=== PATIENT | male | born 1985 | race Caucasian/White ===

== ENCOUNTER 2016-11-14 20:28 | Emergency (ER) | payer OTHER ==
[~2016-11-14] VITALS: Ht 180.3 cm; Wt 103.8 kg
[2016-11-14 20:31] VITALS: TEMP 36.6; Ht 180.3 cm; Wt 103.8 kg
[2016-11-14] MEDS ORDERED: GI COCKTAIL PO STA (21:09)
[2016-11-14] MEDS ORDERED: FAMOTIDINE 20 MG TAB PO STA (21:09)
--- NOTE | 2016-11-14 21:09 | EMERGENCY ROOM VISIT NOTE ---
History Report prepared by Beatrice: Jose Manuel Kirk Under the Supervision of: Dr. Mohit Spangler M.D. First contact with patient: 20:41 Chief Complaint: GI ASSESSMENT Stated Complaint: HARD TO BREATHE/ANXIETY History of Present Illness The patient is a 31 year old male who presents to the Emergency Room with complaints of persistent discomfort in his throat that has been going on for the past week and a half. The patient describes the sensation as his throat closing and feels like he needs to drink water to open it back up. He also complains of a rising, burning sensation in his abdomen. He notes these symptoms have been making it more difficult to breathe and notes increased anxiety. The patient also notes that his left elbow and knee have been cramping for the past few days. The patient had cold-like symptoms a few days ago and was taking NyQuil and a medication for his sinuses for 2 days, but he stopped these 2 days ago. He notes one episode of diarrhea this morning. Source of History: patient Onset: past week and a half Position: throat Timing: other (persistent) Associated Symptoms: + SOB (difficulty breathing), + abdominal pain (rising , burning discomfort), + diarrhea Note: Other associated symptoms: increased anxiety, cramping in left elbow and knee, cold-like symptoms Review of Systems See HPI for pertinent positives & negatives. A total of 10 systems reviewed and were otherwise negative. Past Medical & Surgical Medical Problems: (1) Hearing Loss Nos (2) No Known Active Medical Problems Family History Cancer Heart disease Hypertension Lung disease Social History Smoking Status: Never Smoker Marital Status: single Occupation Status: unemployed Current/Historical Medications No Active Prescriptions or Reported Meds Allergies Coded Allergies: No Known Allergies (Unverified , 05/02/16) Physical Exam Vital Signs Date Time Temp Pulse Resp B/P Pulse Ox O2 Delivery O2 Flow Rate FiO2 11/14/16 21:43 90 20 147/94 95 Room Air 11/14/16 20:31 36.6 91 18 154/115 98 Room Air Physical Exam GENERAL: Patient is a healthy-appearing well-nourished HEAD: Normocephalic atraumatic EYES: Ocular movements intact pupils equal and react to light OROPHARYNX mucous membranes are moist no exudates present no erythema or edema present NECK: Supple no nuchal rigidity CHEST: Good equal expansion LUNGS: Clear and equal to auscultation CARDIAC: Normal S1 and S2 ABDOMEN: Soft nontender no guarding BACK: No CVA tenderness EXTREMITIES: No pain upon palpation normal muscle strength in all groups no clubbing cyanosis or edema NEURO: Patient is following commands is answering questions appropriately. Alert and oriented x3 Cranial Nerves 2-12 grossly intact Medical Decision & Procedures ER Provider Diagnostic Interpretation: X-ray results as stated below per my interpretation and radiologist interpretation. Other radiology results as stated below per my review and radiologist interpretation: SOFT TISSUE NECK CLINICAL HISTORY: Difficulty swallowing. COMPARISON STUDY: No previous studies for comparison. FINDINGS: Prevertebral soft tissues are unremarkable on this exam. The epiglottis is not well evaluated on this exam as it is partially obscured. No abnormal collections of soft tissue gas are present. IMPRESSION: 1. No abnormality of the prevertebral soft tissues identified. 2. Epiglottis not well evaluated on this exam as it is partially obscured. Electronically signed by: Gregory Jimenez M.D. 11/14/2016 10:46 PM Dictated Date/Time: 11/14/2016 10:44 PM LEFT LOWER EXTREMITY VENOUS DOPPLER CLINICAL HISTORY: Left lower extremity pain. COMPARISON STUDY: No previous studies for comparison. TECHNIQUE: Sonography of the deep venous system of the left lower extremity was performed. Compression and augmentation were evaluated. FINDINGS: The common femoral, superficial femoral and popliteal veins were compressible. Augmentation was normal. Flow was shown within the deep calf vessels. IMPRESSION: No evidence of deep venous thrombus within the left lower extremity. Electronically signed by: Gregory Jimenez M.D. 11/14/2016 10:24 PM Dictated Date/Time: 11/14/2016 10:23 PM LEFT KNEE 1 OR 2 VIEWS ROUTINE CLINICAL HISTORY: Left knee pain. COMPARISON: None FINDINGS: Alignment of the left knee is anatomic. No fracture or suspicious lesion is identified. Joint spaces are preserved. There is a possible left knee joint effusion. IMPRESSION: 1. No osseous abnormality of the left knee. 2. Possible left knee joint effusion. Electronically signed by: Gregory Jimenez M.D. 11/14/2016 10:44 PM Dictated Date/Time: 11/14/2016 10:43 PM PA CHEST RADIOGRAPH CLINICAL HISTORY: Shortness of breath. COMPARISON STUDY: Chest radiograph May 02, 2016. FINDINGS: Lung volumes are at the lower limits of normal. No pneumothorax or pleural effusion is present. There are no areas of consolidation. Cardiac size is normal. Mediastinal contours are normal. Pulmonary vascularity is normal. IMPRESSION: No acute cardiopulmonary findings. Electronically signed by: Gregory Jimenez M.D. 11/14/2016 10:47 PM Dictated Date/Time: 11/14/2016 10:46 PM Laboratory Results 11/14/16 20:55 Red Blood Count 4.72, Mean Corpuscular Volume 85.4, Mean Corpuscular Hemoglobin 31.4, Mean Corpuscular Hemoglobin Concent 36.7, Mean Platelet Volume 12.0, Neutrophils (%) (Auto) 56.1, Lymphocytes (%) (Auto) 29.0, Monocytes (%) (Auto) 11.4, Eosinophils (%) (Auto) 3.3, Basophils (%) (Auto) 0.2, Neutrophils # (Auto ) 2.40, Lymphocytes # (Auto) 1.24, Monocytes # (Auto) 0.49, Eosinophils # (Auto ) 0.14, Basophils # (Auto) 0.01 11/14/16 20:55 Test 11/14/16 20:55 White Blood Count 4.28 K/uL (4.8-10.8) Red Blood Count 4.72 M/uL (4.7-6.1) Hemoglobin 14.8 g/dL (14.0-18.0) Hematocrit 40.3 % (42-52) Mean Corpuscular Volume 85.4 fL (80-100) Mean Corpuscular Hemoglobin 31.4 pg (25-34) Mean Corpuscular Hemoglobin Concent 36.7 g/dl (32-36) Platelet Count 151 K/uL (130-400) Mean Platelet Volume 12.0 fL (7.4-10.4) Neutrophils (%) (Auto) 56.1 % Lymphocytes (%) (Auto) 29.0 % Monocytes (%) (Auto) 11.4 % Eosinophils (%) (Auto) 3.3 % Basophils (%) (Auto) 0.2 % Neutrophils # (Auto) 2.40 K/uL (1.4-6.5) Lymphocytes # (Auto) 1.24 K/uL (1.2-3.4) Monocytes # (Auto) 0.49 K/uL (0.11-0.59) Eosinophils # (Auto) 0.14 K/uL (0-0.5) Basophils # (Auto) 0.01 K/uL (0-0.2) RDW Standard Deviation 38.1 fL (36.4-46.3) RDW Coefficient of Variation 12.2 % (11.5-14.5) Immature Granulocyte % (Auto) 0.0 % Immature Granulocyte # (Auto) 0.00 K/uL (0.00-0.02) Urine Color YELLOW Urine Appearance CLEAR (CLEAR) Urine pH 6.0 (4.5-7.5) Urine Specific [place] 1.008 (1.000-1.030) Urine Protein NEG (NEG) Urine Glucose (UA) NEG (NEG) Urine Ketones NEG (NEG) Urine Occult Blood NEG (NEG) Urine Nitrite NEG (NEG) Urine Bilirubin NEG (NEG) Urine Urobilinogen NEG (NEG) Urine Leukocyte Esterase NEG (NEG) Anion Gap 11.0 mmol/L (3-11) Est Creatinine Clear Calc Drug Dose 130.0 ml/min Estimated GFR () 114.9 Estimated GFR (Non- 99.1 BUN/Creatinine Ratio 13.4 (10-20) Calcium Level 8.8 mg/dl (8.5-10.1) Total Bilirubin 0.3 mg/dl (0.2-1) Direct Bilirubin < 0.1 mg/dl (0-0.2) Aspartate Amino Transf (AST/SGOT) 53 U/L (15-37) Alanine Aminotransferase (ALT/SGPT) 82 U/L (12-78) Alkaline Phosphatase 59 U/L (45-117) Total Protein 7.7 gm/dl (6.4-8.2) Albumin 4.3 gm/dl (3.4-5.0) Lipase 185 U/L (73-393) Labs reviewed by ED physician. Medications Administered Medications (Trade) Dose Ordered Sig/Melita Route Start Time Stop Time Status Last Admin Dose Admin Famotidine (Pepcid Tab) 20 mg NOW STAT PO 11/14/16 21:09 11/14/16 21:13 DC 11/14/16 21:43 20 MG Sucralfate (Carafate Tab) 1 gm NOW ONCE PO 11/14/16 21:15 11/14/16 21:16 DC 11/14/16 21:43 1 GM Al Hydroxide/Mg Hydroxide (Maalox Susp) 30 ml STK-MED ONCE .ROUTE 11/14/16 21:37 11/14/16 21:38 DC 11/14/16 21:43 30 ML Lidocaine HCl (Viscous Lidocaine 2% Soln) 20 ml STK-MED ONCE .ROUTE 11/14/16 21:37 11/14/16 21:39 DC 11/14/16 21:43 20 ML ECG Indication: abdominal pain Rate (beats per minute): 76 Rhythm: normal sinus Findings: no acute ischemic change, no ectopy ED Course 2054: Past medical records reviewed. The patient was evaluated in room B12. A complete history and physical examination was performed. 2108: Ordered Pepcid Tab 20 mg PO, Gi Cocktail 30 ml PO. 2114: Ordered Sucralfate 1 gm PO. 2136: Ordered Lidocaine HCl 20 ml .ROUTE, Maalox Susp 30 ml .ROUTE. 2301: Ordered Gianna Ciel Elix 40 meq PO. 2304: Upon reexamination the patient is resting comfortably. I discussed results and treatment plan with the patient. He verbalizes agreement and understanding. The patient is ready for discharge. Medical Decision Differential diagnosis: Etiologies such as appendicitis, diverticulitis, PUD, biliary pathology, UTI, pancreatitis, obstruction, mesenteric ischemia, aortic pathology, infections, inflammatory bowel disease, renal colic, as well as others were entertained. This is a 31-year-old male who presents emergency department complaining of multiple complaints. The patient is complaining of cramping to his legs as well as difficulty swallowing as well as epigastric pain. The patient reports she is under a lot of stress and anxiety over the of his auricle which occurred approximately one week ago. The patient was given a GI cocktail, Pepcid and Carafate in the emergency department. This resulted in much improvement in the patient's symptoms and the patient is also concerned about his hypertension however I noted that the patient is under a large amount of anxiety and that he needs follow-up for his hypertension with his primary care physician. He has a normal EKG and normal ultrasound of his leg. I believe based on these findings the patient can be safely discharged home. I will note that the patient is able swallow his own saliva does not appear to have any stridor on examination. I feel his anxiety as well as his reflux are contributing to his symptoms. Patient was in agreement with treatment plan. Impression Primary Impression: Hypokalemia Additional Impression: Reflux gastritis Scribe Attestation The scribe's documentation has been prepared under my direction and personally reviewed by me in its entirety. I confirm that the note above accurately reflects all work, treatment, procedures, and medical decision making performed by me. Departure Information Dispostion Home / Self-Care Prescriptions No Active Prescriptions or Reported Meds Referrals RV. Bhatti MD (PCP) Forms HOME CARE DOCUMENTATION FORM, IMPORTANT VISIT INFORMATION Patient Instructions A Signature Page, My [facility] Additional Instructions Take 5 ml Maalox with every meal and at bedtime Clear liquid diet for next 48 hours Follow up with PCP You have been examined and treated today on an emergency basis only. This is not a substitute for, or an effort to provide, complete comprehensive medical care. It is impossible to recognize and treat all injuries or illnesses in a single emergency department visit. It is therefore important that you follow up closely with Dr Chapin. Call as soon as possible for an appointment. Thank you for your time and consideration. I look forward to speaking with you again soon. Please don't hesitate to call us if you have any questions.
[2016-11-14] MEDS ORDERED: SUCRALFATE 1 GM TAB PO ONE (21:15)
[2016-11-14] MEDS ORDERED: LIDOCAINE HCL 2% VISC SOLN 20 ML UDC ONE (21:37)
[2016-11-14] MEDS ORDERED: ALUMINUM/MAGNESIUM SUSP 30 ML UDC ONE (21:37)
[2016-11-14 21:41] LABS: BASO % 0.2 %; BASO ABS # 0.01 K/uL (0-0.2); COMPLETE YES; EOS % 3.3 %; HEMATOCRIT 40.3 % (42-52); LYMPH ABS # 1.24 K/uL (1.2-3.4); MEAN CELL VOLUME 85.4 fL (80-100); MEAN CORPUSCULAR HEMOGLOBIN 31.4 pg (25-34); MEAN CORPUSCULAR HGB CONC 36.7 g/dl (32-36); MONO % 11.4 %; NEUT % 56.1 %; PLATELET COUNT 151 K/uL (130-400); RED BLOOD COUNT 4.72 M/uL (4.7-6.1); WHITE BLOOD COUNT 4.28 K/uL (4.8-10.8)
[2016-11-14 21:42] LABS: MANUAL MICROSCOPIC REQUIRED? NO; REVIEW REQ? NO; URINE APPEARANCE CLEAR (CLEAR); URINE BILIRUBIN NEG (NEG); URINE COLOR YELLOW; URINE NITRITE NEG (NEG); URINE SPECIFIC GRAVITY 1.008 (1.000-1.030); UROBILINOGEN NEG (NEG)
[2016-11-14 21:49] LABS: ALT/SGPT 82 U/L (12-78); BLOOD UREA NITROGEN 13 mg/dl (7-18); BUN/CREATININE RATIO 13.4 (10-20); CALCIUM 8.8 mg/dl (8.5-10.1); CARBON DIOXIDE 28 mmol/L (21-32); CHLORIDE 102 mmol/L (98-107); GLUCOSE 92 mg/dl (70-99); POTASSIUM 3.5 mmol/L (3.5-5.1); SODIUM 141 mmol/L (136-145)
[2016-11-14 21:52] LABS: ALKALINE PHOSPHATASE 59 U/L (45-117); AST/SGOT 53 U/L (15-37)
--- NOTE | 2016-11-14 22:25 | DIAGNOSTIC IMAGING REPORT ---
LEFT LOWER EXTREMITY VENOUS DOPPLER CLINICAL HISTORY: Left lower extremity pain. COMPARISON STUDY: No previous studies for comparison. TECHNIQUE: Sonography of the deep venous system of the left lower extremity was performed. Compression and augmentation were evaluated. FINDINGS: The common femoral, superficial femoral and popliteal veins were compressible. Augmentation was normal. Flow was shown within the deep calf vessels. IMPRESSION: No evidence of deep venous thrombus within the left lower extremity. Electronically signed by: Gregory Jimenez M.D. 11/14/2016 10:24 PM Dictated Date/Time: 11/14/2016 10:23 PM
--- NOTE | 2016-11-14 22:46 | DIAGNOSTIC IMAGING REPORT ---
LEFT KNEE 1 OR 2 VIEWS ROUTINE CLINICAL HISTORY: Left knee pain. COMPARISON: None FINDINGS: Alignment of the left knee is anatomic. No fracture or suspicious lesion is identified. Joint spaces are preserved. There is a possible left knee joint effusion. IMPRESSION: 1. No osseous abnormality of the left knee. 2. Possible left knee joint effusion. Electronically signed by: Gregory Jimenez M.D. 11/14/2016 10:44 PM Dictated Date/Time: 11/14/2016 10:43 PM
--- NOTE | 2016-11-14 22:48 | DIAGNOSTIC IMAGING REPORT ---
SOFT TISSUE NECK CLINICAL HISTORY: Difficulty swallowing. COMPARISON STUDY: No previous studies for comparison. FINDINGS: Prevertebral soft tissues are unremarkable on this exam. The epiglottis is not well evaluated on this exam as it is partially obscured. No abnormal collections of soft tissue gas are present. IMPRESSION: 1. No abnormality of the prevertebral soft tissues identified. 2. Epiglottis not well evaluated on this exam as it is partially obscured. Electronically signed by: Gregory Jimenez M.D. 11/14/2016 10:46 PM Dictated Date/Time: 11/14/2016 10:44 PM
--- NOTE | 2016-11-14 22:48 | DIAGNOSTIC IMAGING REPORT ---
PA CHEST RADIOGRAPH CLINICAL HISTORY: Shortness of breath. COMPARISON STUDY: Chest radiograph May 02, 2016. FINDINGS: Lung volumes are at the lower limits of normal. No pneumothorax or pleural effusion is present. There are no areas of consolidation. Cardiac size is normal. Mediastinal contours are normal. Pulmonary vascularity is normal. IMPRESSION: No acute cardiopulmonary findings. Electronically signed by: Gregory Jimenez M.D. 11/14/2016 10:47 PM Dictated Date/Time: 11/14/2016 10:46 PM
[2016-11-14] MEDS ORDERED: POTASSIUM CHLORIDE 20 MEQ/15 ML UDC PO STA (23:02)
[2016-11-14 23:27] VITALS: BP 142/88; PULSE 72; O2SAT 96
== END 2016-11-14 23:29 | disposition home or self-care (01) ==
LOC: C.EDB 20:29
DX: E87.6 Hypokalemia (principal); K21.9 Gastro-esophageal reflux disease without esophagitis; R06.02 Shortness of breath; R10.9 Unspecified abdominal pain; R19.7 Diarrhea, unspecified

== ENCOUNTER 2017-01-21 13:59 | Emergency (ER) | payer OTHER ==
[~2017-01-21] VITALS: Ht 180.3 cm; Wt 101.6 kg
[2017-01-21 14:06] VITALS: TEMP 36.9; Ht 180.3 cm; Wt 101.6 kg
[2017-01-21 14:39] VITALS: O2SAT 96
[2017-01-21 14:41] LABS: HEMATOCRIT 41.7 % (42-52); MEAN CELL VOLUME 86.5 fL (80-100); MEAN CORPUSCULAR HEMOGLOBIN 31.3 pg (25-34); MEAN CORPUSCULAR HGB CONC 36.2 g/dl (32-36); MEAN PLATELET VOLUME 12.2 fL (7.4-10.4); PLATELET COUNT 203 K/uL (130-400); RED BLOOD COUNT 4.82 M/uL (4.7-6.1); WHITE BLOOD COUNT 9.13 K/uL (4.8-10.8)
[2017-01-21 14:49] LABS: PARTIAL THROMBOPLASTIN RATIO 1.1; PROTHROMBIN TIME (PATIENT) 10.7 SECONDS (9.0-12.0)
--- NOTE | 2017-01-21 14:56 | DIAGNOSTIC IMAGING REPORT ---
CHEST ONE VIEW PORTABLE HISTORY: Atypical Chest pain COMPARISON: Chest 11/14/2016. FINDINGS: The lungs are clear. Cardiac silhouette is normal in size. No pleural effusions. No pneumothorax. IMPRESSION: No acute process. Electronically signed by: Kaden Luque M.D. 01/21/2017 2:54 PM Dictated Date/Time: 01/21/2017 2:54 PM
[2017-01-21 15:02] LABS: ALT/SGPT 31 U/L (12-78); AST/SGOT 12 U/L (15-37); BLOOD UREA NITROGEN 16 mg/dl (7-18); BUN/CREATININE RATIO 14.6 (10-20); CALCIUM 9.1 mg/dl (8.5-10.1); CARBON DIOXIDE 29 mmol/L (21-32); CHLORIDE 103 mmol/L (98-107); GLUCOSE 90 mg/dl (70-99); POTASSIUM 3.8 mmol/L (3.5-5.1); SODIUM 138 mmol/L (136-145)
[2017-01-21] MEDS ORDERED: NITROGLYCERIN OINT 2% 1GM PACKET EXT STA (15:05)
[2017-01-21] MEDS ORDERED: ASPIRIN 324 MG CHEW PO STA (15:05)
[2017-01-21 15:07] LABS: ALB/GLOB RATIO 1.4 (0.9-2); ALKALINE PHOSPHATASE 57 U/L (45-117)
[2017-01-21] MEDS ORDERED: NITROGLYCERIN OINT 2% 1GM PACKET ONE (15:15)
[2017-01-21 17:48] VITALS: BP 121/74; PULSE 79; O2SAT 98
[2017-01-21] MEDS ORDERED: ALBUTEROL HFA 8 GM INHALER INH STA (17:58)
--- NOTE | 2017-01-21 18:01 | EMERGENCY ROOM VISIT NOTE ---
History First contact with patient: 14:48 Chief Complaint: CHEST PAIN Stated Complaint: CP, LEFT, HEART POUNDING FAST Nursing Triage Summary: Pt c/o palpitations, heart racing. Pain 6.5/10 History of Present Illness The patient is a 31 year old male who presents to the Emergency Room via private vehicle accompanied by with complaints of "chest pain, left, heart pounding fast". The patient does utilize the electronic press breaker. The patient states that for the past 3 weeks he has experienced a tightness in his chest, that is worse when he goes outside in the cold. He notes that this continued daily however today the chest pain is much worse, and he has pain radiating into the left arm. He also felt that his heart rate was elevated around 11:30 AM. He notes that the heart rate became elevated, followed by chest pain shortly thereafter. He also notes that he was at [employer] earlier , and felt weak as well as heart palpitations while walking around. He points to the left anterior chest as the location of the pain that he rates as a 6.5/ 10. He notes shortness of breath with activity. He denies taking any medication today. He denies any abdominal pain at this time. He denies any nausea, vomiting, fevers, chills, history of blood clots, history of asthma, allergies. Review of Systems A complete 10-point Review of Systems was discussed with the patient, with pertinent positives and negatives listed in the History of Present Illness. All remaining Review of Systems questions can be considered negative unless otherwise specified. Past Medical/Surgical History Medical Problems: (1) Hearing Loss Nos (2) No Known Active Medical Problems Hypertension Family History Cancer Heart disease Hypertension Lung disease Social History Smoking Status: Never Smoker Marital Status: single Occupation Status: unemployed Current/Historical Medications No Active Prescriptions or Reported Meds Allergies Coded Allergies: No Known Allergies (Unverified , 01/21/17) Physical Exam Vital Signs Date Time Temp Pulse Resp B/P Pulse Ox O2 Delivery O2 Flow Rate FiO2 01/21/17 17:48 79 18 121/74 98 Room Air 01/21/17 16:32 78 18 135/64 96 01/21/17 16:06 66 18 134/74 98 Room Air 01/21/17 15:19 76 18 140/84 97 Room Air 01/21/17 14:39 68 18 96 Room Air 01/21/17 14:39 96 Room Air 01/21/17 14:22 96 Room Air 01/21/17 14:22 97 Room Air 01/21/17 14:06 36.9 91 18 158/89 97 Room Air Physical Exam VITAL SIGNS - Vital signs and nursing notes were reviewed. Afebrile, hypertensive at 158/89, non-tachycardic and is saturating well on room air 97%. GENERAL -31-year-old male appearing his stated age who is in no acute distress. Communicates well with provider and answers questions appropriately. SKIN - Without rashes. No petechial rashes. HEAD - NC/AT. EYES - Sclera anicteric. Palpebral conjunctiva pink and moist with no injection noted. EARS - No deformities of external structures noted on gross examination bilaterally. NOSE - Midline and without cyanosis. No epistaxis or purulent drainage noted. MOUTH/OROPHARYNX - Without perioral cyanosis. Buccal mucosa pink and moist and without leukoplakia. LUNGS - Chest wall symmetric without accessory muscle use, intercostals retractions, or central cyanosis. Normal vesicular breath sounds CTA B/L. No wheezes, rales, or rhonchi appreciated. CARDIAC - RRR with S1/S2. No murmur, rubs, or gallops appreciated. ABDOMEN - Abdominal contour without pulsations or visible masses. BS normoactive all four quadrants. No tenderness, palpable masses, hepatosplenomegaly, or ascites noted. EXTREMITIES - No clubbing or peripheral cyanosis. No pretibial edema present. Medical Decision & Procedures ER Provider Diagnostic Interpretation: CHEST ONE VIEW PORTABLE HISTORY: Atypical Chest pain COMPARISON: Chest 11/14/2016. FINDINGS: The lungs are clear. Cardiac silhouette is normal in size. No pleural effusions. No pneumothorax. IMPRESSION: No acute process. Electronically signed by: Kaden Luque M.D. 01/21/2017 2:54 PM Dictated Date/Time: 01/21/2017 2:54 PM Laboratory Results 01/21/17 14:20 01/21/17 14:20 Test 01/21/17 14:20 01/21/17 16:23 Red Blood Count 4.82 M/uL (4.7-6.1) Mean Corpuscular Volume 86.5 fL (80-100) Mean Corpuscular Hemoglobin 31.3 pg (25-34) Mean Corpuscular Hemoglobin Concent 36.2 g/dl (32-36) RDW Standard Deviation 40.2 fL (36.4-46.3) RDW Coefficient of Variation 12.6 % (11.5-14.5) Mean Platelet Volume 12.2 fL (7.4-10.4) Prothrombin Time 10.7 SECONDS (9.0-12.0) Prothromb Time International Ratio 1.0 (0.9-1.1) Activated Partial Thromboplast Time 27.6 SECONDS (21.0-31.0) Partial Thromboplastin Ratio 1.1 D-Dimer 210 ug/L FEU (0-500) Anion Gap 6.0 mmol/L (3-11) Est Creatinine Clear Calc Drug Dose 117.0 ml/min Estimated GFR () 102.4 Estimated GFR (Non- 88.4 BUN/Creatinine Ratio 14.6 (10-20) Calcium Level 9.1 mg/dl (8.5-10.1) Magnesium Level 2.0 mg/dl (1.8-2.4) Total Bilirubin 0.4 mg/dl (0.2-1) Aspartate Amino Transf (AST/SGOT) 12 U/L (15-37) Alanine Aminotransferase (ALT/SGPT) 31 U/L (12-78) Alkaline Phosphatase 57 U/L (45-117) Total Creatine Kinase 114 U/L (39-308) Creatine Kinase MB < 0.5 ng/ml (0.5-3.6) Creatine Kinase MB Ratio (0-3.0) Total Protein 7.9 gm/dl (6.4-8.2) Albumin 4.6 gm/dl (3.4-5.0) Globulin 3.3 gm/dl (2.5-4.0) Albumin/Globulin Ratio 1.4 (0.9-2) Bedside Troponin I 0.000 ng/ml (0-0.045) Medications Administered Medications (Trade) Dose Ordered Sig/Melita Route Start Time Stop Time Status Last Admin Dose Admin Aspirin (Aspirin Chew) 324 mg NOW STAT PO 01/21/17 15:05 01/21/17 15:07 DC 01/21/17 15:21 324 MG Nitroglycerin (Nitroglycerin 2% Oint) 1 inch STK-MED ONCE .ROUTE 01/21/17 15:15 01/21/17 15:18 DC 01/21/17 15:21 0.5 INCH Albuterol (Ventolin Hfa Inhaler) 2 puffs ONE STAT INH 01/21/17 17:58 01/21/17 17:59 DC 01/21/17 17:58 2 PUFFS Medical Decision Patient was seen and evaluated as above. After obtaining a thorough history and physical examination the above workup was initiated. IV access was obtained , CBC revealed no leukocytosis or concerning anemia. Coagulation studies within normal limits. D-dimer within normal limits. CMP reveals AST low at 12 , CK-MB low at less than 0.5. Troponin negative 2. Patient's EKG reveals a normal sinus rhythm, rate of 75 bpm, without ectopy or ischemic change. When compared with previous EKG of 11/14/2016 no significant change was found. With the patient having a negative d-dimer, negative troponin 2 and normal EKG I do not suspect acute process. Patient likely has esophagitis as his pain was relieved with nitroglycerin and aspirin. He was educated upon today's findings , and educated that follow-up is important. Given the patient's presentation I did elect to provide him with an inhaler to help with the potential asthmatic reaction of the airway as he goes out with a cold with worsening shortness of breath. He was educated up on use. A substation designer was utilized throughout nearly all interactions to verify consistency. The patient did seem happy with plan of care, and had questions answered. He was educated upon following up with his family doctor, was educated upon worrisome symptoms which to return, had questions answered prior to discharge, and was discharged home in good condition. In the evaluation and treatment of this patient the following differential diagnoses were entertained: HI, PE, costochondritis, esophagitis, STEMI, and STEMI, among others. Impression Primary Impression: Esophagitis Departure Information Dispostion Home / Self-Care Condition GOOD Prescriptions No Active Prescriptions or Reported Meds Referrals No Doctor, Assigned (PCP) Patient Instructions My [facility] Additional Instructions You were seen in the emergency department for your chest pain, shortness of breath. Lab work has helped to exclude emergent causes at this time. Based upon your history, it sounds like this is worse when you're in the cold air may indicate potential asthma. For that you will be prescribed an inhaler. This is one to 2 puffs every 6 hours for the next few days and then as needed for shortness of breath/cough. For pain and fever control, you can use the following [id number] medicines (if >12 yo): - Regular strength (325mg/tab) Tylenol (acetaminophen) 2 tabs every 4-6 hours as needed. Do not exceed 12 tablets in a 24 hour period. Avoid taking more than 4 grams (4000 mg) of Tylenol per day. This includes any other sources of acetaminophen you may take on a regular basis. - Regular strength (200 mg/tab) Advil (ibuprofen) 1-2 tabs every 4-6 hours as needed. Do not exceed a dose of 3200 mg per day. - For best results, alternate dosing of Tylenol and Advil. Please eat a healthy and well balanced diet and get plenty of rest. Please limit foods high in acidity that may cause inflammation of your esophagus. Return to the emergency department if your symptoms persist or worsen over the next 2-3 days despite treatment course outlined above. Return to the emergency department if you develop the following symptoms of: inability to swallow solids , liquids, or drool; excessive wheezing or inability to catch your breath; or intractable fever or pain. Follow up with your primary care provider in 2-3 days from today's emergency department visit. Please return to the emergency department with any new/concerning symptoms.
== END 2017-01-21 18:35 | disposition home or self-care (01) ==
LOC: C.EDB 14:01 → C.EDC 18:35
DX: K20.9 Esophagitis, unspecified (principal); I10 Essential (primary) hypertension; H91.90 Unspecified hearing loss, unspecified ear; Z80.9 Family history of malignant neoplasm, unspecified; Z82.49 Family history of ischemic heart disease and other diseases of the circulatory system; Z83.6 Family history of other diseases of the respiratory system